=== PATIENT | male | born 1980 | race Caucasian/White ===

== ENCOUNTER 2021-05-24 02:02 | Emergency (ER) | payer OTHER ==
[~2021-05-24] VITALS: Ht 180.3 cm; Wt 74.8 kg
[2021-05-24 02:44] LABS: ABSOLUTE BASOPHILS 0.1 thou/uL (0.0-0.2); ABSOLUTE EOSINOPHILS 0.1 thou/uL (0.0-0.7); ABSOLUTE LYMPHOCYTES 1.5 thou/uL (0.8-5.3); ABSOLUTE MONOCYTES 0.5 thou/uL (0.0-1.2); ABSOLUTE NEUTROPHILS 6.1 thou/uL (1.6-8.1); BASOPHILS 0.7 %; EOSINOPHILS 1.8 %; HEMATOCRIT 41.9 % (42.0-52.0); HEMOGLOBIN 13.8 gm/dL (14.0-18.0); LYMPHOCYTES 18.6 %; MCH 27.9 pg (26.0-34.0); MCV 84.5 fL (80.0-100.0); MONOCYTES 5.8 %; MPV 8.7 fl. (7.2-11.1); NUCLEATED RBCS 0 /100WBC; PLATELET COUNT* 191 thou/uL (150-400); POLYS 73.1 %; RBC 4.95 mil/uL (4.50-6.00); RDW-CV 13.4 % (10.5-14.5); WBC 8.3 thou/uL (4.0-11.0)
[2021-05-24 02:49] LABS: CALCIUM 8.9 mg/dL (8.5-10.1); CREATININE 1.4 mg/dL (0.6-1.3); POTASSIUM 3.6 mmol/L (3.5-5.1)
[2021-05-24 02:59] LABS: ALBUMIN 4.6 g/dL (3.4-5.0); TOTAL BILIRUBIN 0.3 mg/dL (<0.1-1.0); TOTAL PROTEIN 7.6 g/dL (6.4-8.2)
[2021-05-24 03:17] LABS: URINE BILIRUBIN NEGATIVE (Negative); URINE BLOOD NEGATIVE (Negative); URINE CLARITY CLEAR; URINE COLOR YELLOW; URINE GLUCOSE-RANDOM NEGATIVE (Negative); URINE KETONES NEGATIVE (Negative); URINE LEUKOCYTES-REFLEX NEGATIVE (Negative); URINE NITRITE-REFLEX NEGATIVE (Negative); URINE PROTEIN NEGATIVE (Negative); URINE SPECIFIC GRAVITY >= 1.030 (1.005-1.030); URINE UROBILINOGEN 0.2 E.U./dl (0.2-1.0)
[2021-05-24 03:18] LABS: AMP/METHAMP Negative (Negative); BARBITURATES Negative (Negative); BENZODIAZEPINES Negative (Negative); COCAINE Negative (Negative); METHADONE Negative (Negative); OPIATES Negative (Negative); PCP Negative (Negative); THC POSITIVE (Negative)
[2021-05-24 04:40] VITALS: BP 150/82
--- NOTE | 2021-05-24 14:25 | EKG ---
[place] [address] ELECTROCARDIOGRAM REPORT Name: TERRELL NGUYEN Room: [facility]#: [id number] Admission: 05/24/21 Attend Phys: Discharge: 05/24/21 Date of : 80 Date of Service: 05/24/21207 Report #: [id number] THIS REPORT FOR: //name// 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: [facility] : 1980 Requested By: Angie Felipe Order Number: [id number] MD: Jabari Boudreaux Measurements Intervals [place] Rate: 134 P: 75 IN: 156 QRS: 67 QRSD: 89 T: -69 QT: 270 QTc: 403 Interpretive Statements Sinus tachycardia Borderline repolarization abnormality No previous ECG available for comparison Electronically Signed On 05-24-2021 14:24:45 CDT by Jabari Boudreaux [email or web address] <ELECTRONICALLY SIGNED> By: Jabari Boudreaux MD, [facility] 05/24/21 1424 7 7 Jabari Boudreaux MD, FAC /EPI
== END 2021-05-24 04:40 | disposition home or self-care (01) ==
LOC: M.ERS 02:02
PROVIDERS: Personal Emergency Response Attendant
DX: F12.921 Cannabis use, unspecified with intoxication delirium (principal); T50.901A Poisoning by unspecified drugs, medicaments and biological substances, accidental (unintentional), initial encounter; R00.0 Tachycardia, unspecified; I48.91 Unspecified atrial fibrillation; Z91.013 Allergy to seafood; Y92.89 Other specified places as the place of occurrence of the external cause